=== PATIENT | female | born 1945 | race Two or more races ===

== ENCOUNTER 2018-03-01 15:15 | Outpatient (CLI) | payer OTHER ==
[~2018-03-01 15:15] MED LIST: CATAFLAN PO; DIOVAN HCT 160-1 TAB PO; NABUMETONE500 MG PO; PERCOCET 5/3251 TAB PO
== END 2018-03-01 15:45 | disposition home or self-care (01) ==
LOC: RAD 501 15:15
DX: M19.041 Primary osteoarthritis, right hand (principal); M19.042 Primary osteoarthritis, left hand; M19.071 Primary osteoarthritis, right ankle and foot; M19.072 Primary osteoarthritis, left ankle and foot

== ENCOUNTER 2018-05-12 13:49 | Outpatient (CLI) | payer OTHER | END 2018-05-12 13:54 | disposition home or self-care (01) | LOC: RAD 501 13:49 | DX: R07.89 Other chest pain (principal); Z01.818 Encounter for other preprocedural examination; I73.9 Peripheral vascular disease, unspecified ==

== ENCOUNTER 2018-05-20 06:12 | Day surgery (SDC) | payer OTHER ==
[~2018-05-20 06:12] MED LIST changes: +ASA81 MG PO
[2018-05-20] MEDS ORDERED: NABUMETONE500 MG PO (10:14)
[2018-05-20] MEDS ORDERED: PERCOCET 5-3251 EACH PO (10:14)
== END 2018-05-20 12:40 | disposition home or self-care (01) ==
LOC: CIR.AMB 06:12
DX: M23.312 Other meniscus derangements, anterior horn of medial meniscus, left knee (principal); M23.322 Other meniscus derangements, posterior horn of medial meniscus, left knee; M23.352 Other meniscus derangements, posterior horn of lateral meniscus, left knee; M94.262 Chondromalacia, left knee; M65.832 Other synovitis and tenosynovitis, left forearm; M13.862 Other specified arthritis, left knee

== ENCOUNTER → 2020-07-24 | Outpatient (CLI) | payer OTHER ==
[~2020-07-24] MED LIST changes: +PERCOCET 5-3251 EACH PO
== END | disposition home or self-care (01) ==
LOC: RAD 14:53
PROVIDERS: ATTEND Internal Medicine Rheumatology
DX: M06.09 Rheumatoid arthritis without rheumatoid factor, multiple sites (principal)

== ENCOUNTER → 2020-08-08 | Outpatient (CLI) | payer OTHER | END | disposition home or self-care (01) | LOC: NUCLEAR 13:00 | PROVIDERS: ATTEND Internal Medicine Rheumatology | DX: M81.0 Age-related osteoporosis without current pathological fracture (principal) ==

== ENCOUNTER 2020-11-28 08:00 | Outpatient (CLI) | payer OTHER | END 2020-11-28 15:00 | disposition home or self-care (01) | LOC: PPH VACUNA 08:00 | PROVIDERS: ATTEND Emergency Medicine Pediatric Emergency Medicine | DX: Z23 Encounter for immunization (principal) ==

== ENCOUNTER → 2020-12-19 15:00 | Outpatient (CLI) | payer OTHER | END | disposition home or self-care (01) | LOC: PPH VACUNA 15:00 | PROVIDERS: ATTEND Emergency Medicine Pediatric Emergency Medicine | DX: Z23 Encounter for immunization (principal) ==

== ENCOUNTER → 2021-05-08 | Outpatient (CLI) | payer OTHER | END | disposition home or self-care (01) | LOC: RAD 16:05 | PROVIDERS: ATTEND Psychiatry & Neurology Clinical Neurophysiology | DX: I50.20 Unspecified systolic (congestive) heart failure (principal); J40 Bronchitis, not specified as acute or chronic ==

== ENCOUNTER 2021-11-13 08:00 | Outpatient (CLI) | payer OTHER | END 2021-11-13 08:30 | disposition home or self-care (01) | LOC: PPH VACUNA 08:00 | PROVIDERS: ATTEND Emergency Medicine Pediatric Emergency Medicine | DX: Z23 Encounter for immunization (principal) ==

== ENCOUNTER 2022-03-12 14:39 | Outpatient (CLI) | payer OTHER | END 2022-03-12 16:01 | disposition home or self-care (01) | LOC: RAD 14:39 | PROVIDERS: ATTEND Internal Medicine Rheumatology | DX: I10 Essential (primary) hypertension (principal) ==

== ENCOUNTER 2022-03-18 08:00 | Outpatient (CLI) | payer OTHER | END 2022-03-18 08:30 | disposition home or self-care (01) | LOC: PPH VACUNA 08:00 | PROVIDERS: ATTEND Emergency Medicine Pediatric Emergency Medicine | DX: Z23 Encounter for immunization (principal) ==

== ENCOUNTER 2023-02-18 16:23 | Outpatient (CLI) | payer OTHER | END 2023-02-18 16:29 | disposition home or self-care (01) | LOC: RAD 16:23 | PROVIDERS: ATTEND Internal Medicine Rheumatology | DX: M15.0 Primary generalized (osteo)arthritis (principal) ==

== ENCOUNTER → 2023-03-12 14:33 | Outpatient (CLI) | payer OTHER | END | disposition home or self-care (01) | LOC: NUCLEAR 13:45 | PROVIDERS: ATTEND Psychiatry & Neurology Clinical Neurophysiology | DX: M81.0 Age-related osteoporosis without current pathological fracture (principal) ==

== ENCOUNTER 2023-10-05 14:53 | Outpatient (CLI) | payer OTHER | END 2023-10-05 14:58 | disposition home or self-care (01) | LOC: RAD 14:53 | PROVIDERS: ATTEND Psychiatry & Neurology Clinical Neurophysiology | DX: M84.459A Pathological fracture, hip, unspecified, initial encounter for fracture (principal) ==

== ENCOUNTER 2024-02-22 14:44 | Outpatient (CLI) | payer OTHER | END 2024-02-22 14:51 | disposition home or self-care (01) | LOC: TOM 14:44 | PROVIDERS: ATTEND Specialist | DX: M05.10 Rheumatoid lung disease with rheumatoid arthritis of unspecified site (principal) ==

== ENCOUNTER → 2024-08-11 | Outpatient (CLI) | payer OTHER | END | disposition home or self-care (01) | LOC: RAD 14:39 | PROVIDERS: ATTEND Internal Medicine Rheumatology | DX: M17.11 Unilateral primary osteoarthritis, right knee (principal) ==

== ENCOUNTER 2025-01-26 11:23 | Outpatient (CLI) | payer OTHER | END 2025-01-26 11:31 | disposition home or self-care (01) | LOC: RAD 11:23 | PROVIDERS: ATTEND Specialist | DX: J45.998 Other asthma (principal) ==

== ENCOUNTER 2025-03-02 10:45 | Inpatient (IN) | payer OTHER ==
[~2025-03-02] VITALS: Ht 142.2 cm; Wt 59.0 kg
[~2025-03-02 10:45] MED LIST changes: +THIAMINE HCL 100 MG/ML 2 ML VIAL IV SCH
[2025-03-02] MEDS ORDERED: MILLIPRED5 MG (10:56)
[2025-03-02] MEDS ORDERED: TREXALL5 MG (10:56)
[2025-03-02] MEDS ORDERED: LYVISPAH20 MG (10:56)
[2025-03-02] MEDS ORDERED: HUMIRA40 MG/0.2 (10:56)
[2025-03-02] MEDS ORDERED: PROTONIX40 M1 (10:57)
[2025-03-02] MEDS ORDERED: NEURONTIN300 MG (10:57)
[2025-03-02] MEDS ORDERED: 0.9 % SODIUM CHLORIDE 1,000 ML IV SCH (11:15)
[2025-03-02 11:46] LABS: HEMATOCRIT 35.8 % (36.0-45.00); HEMOGLOBIN 12.3 g/dL (12.0-15.00); MEAN CELL VOLUME 97.8 fL (80.00-100.00); MEAN CORPUSCULAR HEMOGLOBIN 33.6 pg (27.00-32.0); MEAN CORPUSCULAR HGB CONC 34.4 g/dl (32.0-36.0); PLATELET COUNT 189 K/uL (150-450); RED BLOOD COUNT 3.66 M/uL (4.00-6.00); RED CELL DISTRIBUTION WIDTH 14.4 % (11.5-14.5)
[2025-03-02 12:08] LABS: ALBUMIN 3.9 gm/dL (3.4-5.0); BILIRUBIN TOTAL 0.82 mg/dL (0.3-1.2); CALCIUM 9.7 mg/dL (8.5-10.1); CREATININE SERUM 1.04 mg/dL (0.55-1.02); GFR 51.12; GLOBULINA 4.2 G/DL (2.4-3.5); POTASSIUM 3.58 mEq/L (3.5-5.1); TOTAL PROTEIN 8.1 gm/dL (6.4-8.2)
[2025-03-02] MEDS ORDERED: SODIUM CHLORIDE 0.45 % 1,000 ML IV SCH (12:45)
[2025-03-02] MEDS ORDERED: IRBESARTAN 150 MG TABLET PO STA (12:47)
[2025-03-02] MEDS ORDERED: PANTOPRAZOLE SODIUM 40 MG TABLET.DR PO SCH (12:48)
[2025-03-02] MEDS ORDERED: PREDNISONE 5 MG TABLET PO SCH (13:00)
[2025-03-02] MEDS ORDERED: ENALAPRILAT DIHYDRATE 1.25 MG/ML VIAL IV PRN (13:00)
[2025-03-02 14:08] LABS: URINE APPEARANCE Clear; URINE BILIRRUBIN Negative (NEGATIVE); URINE BLOOD Small; URINE COLOR Yellow; URINE GLUCOSE Negative (NEGATIVE); URINE KETONE 15 (NEGATIVE); URINE LEUKOCYTE Negative; URINE NITRATE Negative; URINE PROTEIN Negative (NEGATIVE); URINE UROBILINOGEN 0.2 E.U./dl
[2025-03-02 14:09] LABS: URINE BACTERIA 46.4 uL (0.0-1933); URINE EPITHELIAL CELLS 1.8 uL (0.0-38.8); URINE RBC 45.9 uL (0.0-20.8); URINE WBC 1.8 uL (0.0-23.2)
[2025-03-02] MEDS ORDERED: THIAMINE HCL 100 MG/ML 2 ML VIAL IV STA (18:16)
[2025-03-02] MEDS ORDERED: HALOPERIDOL LACTATE 5 MG/ML AMPUL IM PRN (18:30)
[2025-03-02 19:29] VITALS: BP 140/62; O2SAT 96
[2025-03-02 20:57] VITALS: O2SAT 96
[2025-03-03] VITALS (9 sets, daily range): BP systolic 141–190; BP diastolic 68–85; O2SAT 93–99
[2025-03-03] MEDS ORDERED: IRBESARTAN 150 MG TABLET PO SCH (09:00)
[2025-03-03] MEDS ORDERED: FOLIC ACID 1 MG TABLET PO SCH (09:00)
[2025-03-03] MEDS ORDERED: SERTRALINE HCL 100 MG TABLET PO SCH (09:00)
[2025-03-03 10:36] LABS: INR 1.04; PROTHROMBIN TIME 11.3 SECONDS (9.0-11.5)
[2025-03-03 10:57] LABS: ALBUMIN 3.8 gm/dL (3.4-5.0); BILIRUBIN TOTAL 0.88 mg/dL (0.3-1.2); CALCIUM 9.4 mg/dL (8.5-10.1); CREATININE SERUM 0.84 mg/dL (0.55-1.02); GFR 65.4; GLOBULINA 3.9 G/DL (2.4-3.5); POTASSIUM 4.03 mEq/L (3.5-5.1); T4 FREE 1.03 NG/ML (0.76-1.46); TOTAL PROTEIN 7.7 gm/dL (6.4-8.2); TSH 3.37 uIU/mL (0.358-3.74)
[2025-03-03] MEDS ORDERED: APIXABAN 2.5 MG TABLET PO SCH (17:00)
[2025-03-04 01:27] VITALS: O2SAT 93
[2025-03-04 02:33] LABS: PH,URINE 5.5 (5.0-8.0); URINE APPEARANCE Clear; URINE BILIRRUBIN Negative (NEGATIVE); URINE BLOOD Small; URINE COLOR Yellow; URINE GLUCOSE Negative (NEGATIVE); URINE LEUKOCYTE Negative; URINE NITRATE Negative; URINE PROTEIN 30 (NEGATIVE)
[2025-03-04 02:36] LABS: URINE BACTERIA 28.1 uL (0.0-1933); URINE EPITHELIAL CELLS 4.2 uL (0.0-38.8); URINE RBC 111.3 uL (0.0-20.8); URINE WBC 2.3 uL (0.0-23.2)
[2025-03-04 02:49] LABS: URINE KETONE 80 (NEGATIVE)
[2025-03-04 03:40] VITALS: BP 180/64; O2SAT 92
[2025-03-04 06:21] VITALS: O2SAT 94
[2025-03-04 08:35] VITALS: O2SAT 94
[2025-03-04] MEDS ORDERED: QUETIAPINE FUMARATE 25 MG TABLET PO SCH (09:00)
[2025-03-04] MEDS ORDERED: DILTIAZEM HCL 30 MG TABLET PO SCH (09:00)
[2025-03-04] MEDS ORDERED: AA 5 % NO.6/DEXTROSE 15 % 2,000 ML CENTRAL SCH (17:00)
[2025-03-04 17:43] VITALS: BP 96/54; O2SAT 95
[2025-03-04 22:13] VITALS: O2SAT 95
[2025-03-05] VITALS (9 sets, daily range): BP systolic 99–136; BP diastolic 47–66; O2SAT 94–96
[2025-03-05 06:33] LABS: HEMATOCRIT 31.2 % (36.0-45.00); HEMOGLOBIN 10.6 g/dL (12.0-15.00); MEAN CELL VOLUME 98.9 fL (80.00-100.00); MEAN CORPUSCULAR HEMOGLOBIN 33.7 pg (27.00-32.0); PLATELET COUNT 179 K/uL (150-450); RED BLOOD COUNT 3.15 M/uL (4.00-6.00); RED CELL DISTRIBUTION WIDTH 14.3 % (11.5-14.5)
[2025-03-05 06:56] LABS: BILIRUBIN TOTAL 0.85 mg/dL (0.3-1.2); CALCIUM 8.9 mg/dL (8.5-10.1); CREATININE SERUM 1.24 mg/dL (0.55-1.02); GFR 41.73; GLOBULINA 3.6 G/DL (2.4-3.5); MAGNESIUM 2.2 mg/dL (1.8-2.4); PHOSPHOROUS 2.9 mg/dL (2.5-4.9); POTASSIUM 3.61 mEq/L (3.5-5.1); TOTAL PROTEIN 6.6 gm/dL (6.4-8.2)
[2025-03-05] MEDS ORDERED: CEFTRIAXONE SODIUM 1,000 MG VIAL IV NR (10:15)
[2025-03-05] MEDS ORDERED: hydrALAZINE HCL 20 MG VIAL IV PRN (18:45)
[2025-03-05] MEDS ORDERED: LEVALBUTEROL HCL 0.63 MG/3 ML SOLUTION IH SCH (19:03)
[2025-03-06] VITALS (8 sets, daily range): BP systolic 115–148; BP diastolic 57–60; O2SAT 92–97
[2025-03-06] MEDS ORDERED: hydrALAZINE HCL 25 MG TABLET PO SCH (09:00)
[2025-03-06 09:01] LABS: CALCIUM 9.1 mg/dL (8.5-10.1); CREATININE SERUM 0.99 mg/dL (0.55-1.02); GFR 54.11; POTASSIUM 3.83 mEq/L (3.5-5.1)
[2025-03-06 14:02] LABS: ABG PH 7.435 (7.35-7.45); ABG PO2 93.8 mmHg (80-100); ABG pCO2 34.7 mmHg (35-45); BASE EXCESS -0.8 mmol/l; BICARBONATE 22.8 mmol/l (23-25); SaO2 97.5 %; Tco2 23.8 mmol/l; allen test SATISFACTORY; mode ROOM AIR; o2 21 %; puncture site RADIAL LEFT
[2025-03-06] MEDS ORDERED: CEFTRIAXONE SODIUM 1,000 MG VIAL IV STA (14:51)
[2025-03-07] VITALS (8 sets, daily range): BP systolic 112–130; BP diastolic 62–65; O2SAT 90–99
[2025-03-07] MEDS ORDERED: CEFTRIAXONE SODIUM 1,000 MG VIAL IV SCH (09:00)
[2025-03-07 09:04] LABS: ALBUMIN 2.8 gm/dL (3.4-5.0); BILIRUBIN TOTAL 0.49 mg/dL (0.3-1.2); CALCIUM 8.8 mg/dL (8.5-10.1); CREATININE SERUM 0.92 mg/dL (0.55-1.02); GFR 58.89; GLOBULINA 3.8 G/DL (2.4-3.5); POTASSIUM 4.21 mEq/L (3.5-5.1); TOTAL PROTEIN 6.6 gm/dL (6.4-8.2)
[2025-03-07] MEDS ORDERED: ACETAMINOPHEN 325 MG TABLET PO STA (19:23)
[2025-03-07] MEDS ORDERED: ACETAMINOPHEN 325 MG TABLET PO PRN (19:30)
[2025-03-07] MEDS ORDERED: GABAPENTIN 300 MG CAPSULE PO SCH (21:00)
[2025-03-08] VITALS (8 sets, daily range): BP systolic 107–137; BP diastolic 63–67; O2SAT 90–96
[2025-03-08 08:05] LABS: PH,URINE 5.5 (5.0-8.0); URINE APPEARANCE Cloudy; URINE BILIRRUBIN Negative (NEGATIVE); URINE BLOOD Moderate; URINE COLOR Yellow; URINE GLUCOSE Negative (NEGATIVE); URINE KETONE Negative (NEGATIVE); URINE LEUKOCYTE Moderate; URINE NITRATE Negative; URINE PROTEIN Trace (NEGATIVE)
[2025-03-08 08:08] LABS: URINE BACTERIA 181.1 uL (0.0-1933); URINE CAST 1.61 uL (0.0-1.40); URINE EPITHELIAL CELLS 15.9 uL (0.0-38.8); URINE RBC 2206.3 uL (0.0-20.8); URINE WBC 197.4 uL (0.0-23.2)
[2025-03-08 08:37] LABS: ALBUMIN 2.6 gm/dL (3.4-5.0); BILIRUBIN TOTAL 0.68 mg/dL (0.3-1.2); CALCIUM 8.8 mg/dL (8.5-10.1); CREATININE SERUM 0.93 mg/dL (0.55-1.02); GFR 58.16; GLOBULINA 3.8 G/DL (2.4-3.5); POTASSIUM 3.82 mEq/L (3.5-5.1); TOTAL PROTEIN 6.4 gm/dL (6.4-8.2)
[2025-03-08] MEDS ORDERED: CEFTRIAXONE SODIUM 2,000 MG VIAL IV SCH (09:00)
[2025-03-08] MEDS ORDERED: IRBESARTAN 75 MG TABLET PO SCH (09:00)
[2025-03-08] MEDS ORDERED: SOD FERRIC GLUC COMPLX/SUCROSE 62.5 MG in 0.9 % SODIUM CHLORIDE 50 ML IV SCH (09:00)
[2025-03-09] VITALS: O2SAT 90
[2025-03-09 01:09] VITALS: BP 130/68
[2025-03-09 06:23] VITALS: O2SAT 90
[2025-03-09 07:44] VITALS: BP 129/57; O2SAT 92
[2025-03-09 09:30] VITALS: O2SAT 93
[2025-03-09] MEDS ORDERED: IRBESARTAN75 MG PO (11:02)
[2025-03-09] MEDS ORDERED: ELIQUIS2.5 MG PO (11:02)
[2025-03-09] MEDS ORDERED: CARDIZEM CD120 MG PO (11:03)
[2025-03-09] MEDS ORDERED: SYMBICORT 16010.2 GM IH (11:09)
[2025-03-09] MEDS ORDERED: PANTOPRAZOLE SO40 MG PO (11:09)
[2025-03-09] MEDS ORDERED: FOLIC ACID1 MG PO (11:09)
[2025-03-09] MEDS ORDERED: PREDNISONE 5MG PO (11:09)
[2025-03-09] MEDS ORDERED: GABAPENTIN300 MG PO (11:09)
[2025-03-09] MEDS ORDERED: SERTRALINE HCL100 MG PO (11:09)
[2025-03-09] MEDS ORDERED: XOPENEX CO1.25 MG/0. IH (11:09)
[2025-03-09] MEDS ORDERED: QUETIAPINE FUMA25 MG PO (11:09)
[2025-03-09] MEDS ORDERED: HYDRALAZINE HCL25 MG PO (11:09)
[2025-03-09] MEDS ORDERED: FUROsemide 20 MG TABLET PO PRN (11:30)
== END 2025-03-09 13:23 | disposition home or self-care (01) | DRG 884 ==
LOC: ER 10:45 → MEDJ 12:52
PROVIDERS: Emergency Medicine; Internal Medicine; Internal Medicine Geriatric Medicine; Internal Medicine Infectious Disease; ADMIT Specialist; ATTEND Specialist
PROC: 4A12X4Z Monitoring of Cardiac Electrical Activity, External Approach (ICD-10-PCS; principal; 2025-03-02)
PROC: B020ZZZ Computerized Tomography (CT Scan) of Brain (ICD-10-PCS; 2025-03-02)
PROC: B030ZZZ Magnetic Resonance Imaging (MRI) of Brain (ICD-10-PCS; 2025-03-02)
PROC: B246ZZZ Ultrasonography of Right and Left Heart (ICD-10-PCS; 2025-03-02)
PROC: B345ZZZ Ultrasonography of Bilateral Common Carotid Arteries (ICD-10-PCS; 2025-03-02)
PROC: B348ZZZ Ultrasonography of Bilateral Internal Carotid Arteries (ICD-10-PCS; 2025-03-02)
PROC: B030ZZZ Magnetic Resonance Imaging (MRI) of Brain (ICD-10-PCS; 2025-03-05)
PROC: BB24ZZZ Computerized Tomography (CT Scan) of Bilateral Lungs (ICD-10-PCS; 2025-03-05)
PROC: 3E0F7GC Introduction of Other Therapeutic Substance into Respiratory Tract, Via Natural or Artificial Opening (ICD-10-PCS; 2025-03-06)
DX: F03.911 Unspecified dementia, unspecified severity, with agitation (principal); F32.3 Major depressive disorder, single episode, severe with psychotic features; I48.92 Unspecified atrial flutter; N17.9 Acute kidney failure, unspecified; B37.49 Other urogenital candidiasis; M05.10 Rheumatoid lung disease with rheumatoid arthritis of unspecified site; I65.23 Occlusion and stenosis of bilateral carotid arteries; G31.89 Other specified degenerative diseases of nervous system; R05.9 Cough, unspecified; M54.16 Radiculopathy, lumbar region; I12.9 Hypertensive chronic kidney disease with stage 1 through stage 4 chronic kidney disease, or unspecified chronic kidney disease; N18.9 Chronic kidney disease, unspecified; E05.00 Thyrotoxicosis with diffuse goiter without thyrotoxic crisis or storm; Z79.52 Long term (current) use of systemic steroids; B96.20 Unspecified Escherichia coli [E. coli] as the cause of diseases classified elsewhere
CPT/HCPCS: 70551; 70553